=== PATIENT | female | born 1975 | race Caucasian/White ===

== ENCOUNTER 2019-07-27 09:11 | Emergency (ER) | payer MEDICAID ==
[~2019-07-27] VITALS: Ht 157.5 cm; Wt 65.8 kg
[2019-07-27 09:12] VITALS: BP 153/95
[2019-07-27] MEDS ORDERED: KETOROLAC 30 MG/ML VIAL IM ONE (09:50)
[2019-07-27 10:55] VITALS: BP 129/64
== END 2019-07-27 10:55 | disposition home or self-care (01) ==
LOC: MED 09:11
DX: S83.91XA Sprain of unspecified site of right knee, initial encounter (principal); Z98.890 Other specified postprocedural states
CPT/HCPCS: 29505; 73562; 93971; 96372; 99284; J1885; Q0092

== ENCOUNTER 2019-10-14 00:12 | Emergency (ER) | payer MEDICAID ==
[~2019-10-14] VITALS: Ht 157.5 cm; Wt 104.3 kg
[2019-10-14 00:14] VITALS: BP 151/79
--- NOTE | 2019-10-14 00:30 | NUR ---
PT PRESENTS TO THE WITH C/O LEFT KNEE PAIN. PT REPORTS FALLING WHILE WALKING ON THE STREET. DENIES LOSS OF CONSCIOUSNESS. PT DENIES OTHER MEDICAL HX. BED LOWERED WITH SIDE RAILS UP. XRAY PENDING
--- NOTE | 2019-10-14 00:41 | NUR ---
PATIENT BEING EVALUATED BY DR MOTA
[2019-10-14] MEDS ORDERED: KETOROLAC 60 MG/2 ML VIAL IM ONE (00:45)
--- NOTE | 2019-10-14 01:38 | NUR ---
KIRAN WRAP APPLIED TO PT L KNEE. +CSM
--- NOTE | 2019-10-14 01:39 | NUR ---
PT GIVEN INSTRUCTION ON PROPER USE OF CRUTCHES. CRUTCHES FITTED TO PT HEIGHT AND ARM LENGTH. PT GIVEN INSTRUCTION ON SITTING TO STANDING AND VICE VERSA, ASCENDING/DESCENDING STAIRS, AND WALKING. PT DEMONSTRATED SAFE USE FOR APPROXIMATELY 40 FEET, PT STATED SHE FELT COMFORTABLE WITH USE.
[2019-10-14 01:44] VITALS: BP 151/79
--- NOTE | 2019-10-14 01:44 | NUR ---
PT DISCHARGED BY DR MOTA
== END 2019-10-14 01:44 | disposition home or self-care (01) ==
LOC: MED 00:12
DX: S83.92XA Sprain of unspecified site of left knee, initial encounter (principal); Z98.890 Other specified postprocedural states; X50.1XXA Overexertion from prolonged static or awkward postures, initial encounter; Y93.89 Activity, other specified; Y92.89 Other specified places as the place of occurrence of the external cause; Y99.8 Other external cause status
CPT/HCPCS: 73562; 96372; 99283; J1885; Q0092

== ENCOUNTER 2019-12-02 09:58 | Emergency (ER) | payer MEDICAID ==
[~2019-12-02] VITALS: Ht 160 cm; Wt 77.1 kg
[2019-12-02 10:37] VITALS: BP 143/84
[2019-12-02] MEDS ORDERED: IBUPROFEN 800 MG TAB PO ONE (10:40)
--- NOTE | 2019-12-02 11:53 | NUR ---
PT AMBULATED TO ER BED 04
[2019-12-02] MEDS ORDERED: IBUPROFEN 800 MG TAB ONE (12:03)
--- NOTE | 2019-12-02 12:05 | NUR ---
44 Y/O F C/O PAIN IN JOINTS IN HANDS AND KNEES X2 DAYS. PT DENIED N/V/F. PT STATES PAIN WITH MOVEMENT 07/30. PT CAP REFIL LESS THAN 3 BILATERAL. PT POSITIONED FOR COMFRT, GIVEN MOTRIN PRESCRIBED. BED LOWERED, SIDE RAIL X1 IN PLACE. PT AMBULATED TO RESTROOM WITHOUT DIFFICULTY TO GIVE UA. NKA
[2019-12-02] MEDS ORDERED: ACETAMINOPHEN 325 MG TAB PO ONE (13:05)
[2019-12-02 14:41] VITALS: BP 143/84
== END 2019-12-02 14:42 | disposition home or self-care (01) ==
LOC: MED 09:58
DX: I83.92 Asymptomatic varicose veins of left lower extremity (principal)
CPT/HCPCS: 93971; 99284; Q0092

== ENCOUNTER 2020-10-17 11:23 | Emergency (ER) | payer MEDICAID ==
[~2020-10-17] VITALS: Ht 165.1 cm; Wt 86.2 kg
[2020-10-17 11:35] VITALS: BP 171/80
--- NOTE | 2020-10-17 11:36 | NUR ---
PT COMPLAINS OF RASH X 2 WEEKS. PT STATES IT HAS LITTLE ITCH, BUT PAINFUL. BRUISING AT SITE. PT AOX4, BREATHING EVEN AND UNLABORED, SKIN WARM AND DRY. BED IN LOWEST POSITION, LOCKED, BED RAIL UPX1. PMH - ARTHRITIS ALLERGIES - ASPIRIN
--- NOTE | 2020-10-17 11:50 | NUR ---
DR. GALLEGOS AT BEDSIDE EVALUATING PT
[2020-10-17 12:16] LABS: BASOPHILS % (AUTO) 0.7 % (0.0-2.0); EOSINOPHILS # (AUTO) 0.1 K/uL (0-0.4); EOSINOPHILS % (AUTO) 1.3 % (0.0-4.0); HEMATOCRIT 39.7 % (36-48); HEMOGLOBIN 13.1 g/dL (12.0-16.0); LYMPHOCYTES # (AUTO) 1.8 K/uL (2.5-16.5); LYMPHOCYTES % (AUTO) 26.8 % (20.5-51.1); MEAN CORPUSCULAR HEMOGLOBIN 29 pg (27-31); MEAN CORPUSCULAR HGB CONC 33 g/dL (33-37); MEAN CORPUSCULAR VOLUME 88.4 fL (80-94); MONOCYTES # (AUTO) 0.5 K/uL (0.8-1.0); MONOCYTES % (AUTO) 7.2 % (1.7-9.3); NEUTROPHILS # (AUTO) 4.3 K/uL (1.8-7.7); PLATELET COUNT (AUTO) 224 K/uL (140-450); RED BLOOD CELL COUNT(AUTO) 4.49 MIL/uL (4.20-5.40); RED CELL DISTRIBUTION WIDTH 13.8 % (11.6-13.7); WHITE BLOOD COUNT (AUTO) 6.8 K/uL (4.8-10.8)
[2020-10-17 12:26] LABS: ANION GAP 7.9 (8-16); CREATININE 0.6 mg/dL (0.6-1.3); POTASSIUM 3.9 mmol/L (3.5-5.1)
[2020-10-17 12:30] LABS: PROTHROMBIN TIME 9.6 secs (10.8-13.4)
[2020-10-17 12:32] LABS: ALBUMIN 3.5 g/dL (3.4-5.0); TOTAL BILIRUBIN 0.5 mg/dL (0.0-1.0)
[2020-10-17 13:10] VITALS: BP 165/80
--- NOTE | 2020-10-17 13:10 | NUR ---
Patient discharged with v/s stable. Written and verbal after care instructions about contusion in albanian given and explained. Patient alert, oriented and verbalized understanding of instructions. Ambulatory with steady gait. All questions addressed prior to discharge. ID band removed. Patient advised to follow up with PMD. Rx of percogesic given. Patient educated on indication of medication including possible reaction and side effects. Opportunity to ask questions provided and answered.
== END 2020-10-17 13:10 | disposition home or self-care (01) ==
LOC: MED 11:23
DX: R10.9 Unspecified abdominal pain (principal); Z88.6 Allergy status to analgesic agent; Z98.890 Other specified postprocedural states
CPT/HCPCS: 36415; 80053; 83690; 84703; 85025; 85610; 85730; 99283

== ENCOUNTER 2021-05-25 14:33 | Emergency (ER) | payer MEDICAID ==
[~2021-05-25] VITALS: Ht 157.5 cm; Wt 102.1 kg
[2021-05-25 14:49] VITALS: BP 166/84
--- NOTE | 2021-05-25 14:52 | NUR ---
PT ASKED TO WAIT IN LOBBY.
--- NOTE | 2021-05-25 15:28 | NUR ---
PT AMBULATED TO BED 08
--- NOTE | 2021-05-25 15:50 | NUR ---
45/F presents to ED with c/o right shoulder pain x2 months. Patient states she has had intermittent 7/10 right shoulder pain for 2 months worsening this week. Patient denies injury or trauma to site, states range of motion is limited due to pain. Pain is non radiating, tender to touch. Patient states she has also began having bilateral pain in her toes, denies injury or trauma states pain is worsening, denies taking anything at home for pain.
[2021-05-25] MEDS ORDERED: KETOROLAC 30 MG/ML VIAL IM ONE (16:55)
[2021-05-25] MEDS ORDERED: [UNRECOGNIZED DRUG - CODE] TP (17:43)
[2021-05-25 17:50] VITALS: BP 153/79
--- NOTE | 2021-05-25 17:51 | NUR ---
Patient discharged with v/s stable. Written and verbal after care instructions given and explained. Patient alert, oriented and verbalized understanding of instructions. Ambulatory with steady gait. All questions addressed prior to discharge. ID band removed. Patient advised to follow up with PMD. Rx of Lidopatch given. Patient educated on indication of medication including possible reaction and side effects. Opportunity to ask questions provided and answered.
== END 2021-05-25 17:51 | disposition home or self-care (01) ==
LOC: MED 14:33
DX: M25.511 Pain in right shoulder (principal); Z79.899 Other long term (current) drug therapy; Z88.6 Allergy status to analgesic agent
CPT/HCPCS: 73030; 96372; 99283; J1885

== ENCOUNTER 2023-04-28 15:12 | Inpatient (IN) | payer MEDICAID ==
[~2023-04-28] VITALS: Ht 165.1 cm; Wt 94.3 kg
[~2023-04-28 15:12] MED LIST: BEN10 PO; IBUP-2213 PO; POLY17PD72 PO; [UNRECOGNIZED DRUG - CODE] TP
[2023-04-28 15:20] VITALS: BP 159/89; PULSE 87; RESP 17; TEMP 97.7; O2SAT 98
[2023-04-28] MEDS ORDERED: ONDANSETRON 4 MG/2 ML VIAL IVP ONE (15:55)
[2023-04-28] MEDS ORDERED: MORPHINE SULFATE 4 MG/ML SYR IVP ONE ×2 (15:55→22:35)
[2023-04-28 16:40] LABS: BASOPHILS # (AUTO) 0.1 K/uL (0.00-0.22); BASOPHILS % (AUTO) 0.7 % (0.0-2.0); EOSINOPHILS # (AUTO) 0.1 K/uL (0-0.4); EOSINOPHILS % (AUTO) 1.3 % (0.0-4.0); HEMATOCRIT 39.4 % (36-48); HEMOGLOBIN 13.3 g/dL (12.0-16.0); LYMPHOCYTES # (AUTO) 2.4 K/uL (2.5-16.5); LYMPHOCYTES % (AUTO) 24.8 % (20.5-51.1); MEAN CORPUSCULAR HEMOGLOBIN 29 pg (27-31); MEAN CORPUSCULAR HGB CONC 34 g/dL (33-37); MEAN CORPUSCULAR VOLUME 84.3 fL (80-94); MONOCYTES # (AUTO) 0.8 K/uL (0.8-1.0); MONOCYTES % (AUTO) 7.8 % (1.7-9.3); NEUTROPHILS # (AUTO) 6.4 K/uL (1.8-7.7); NEUTROPHILS % (AUTO) 65.4 % (42.2-75.2); PLATELET COUNT (AUTO) 251 K/uL (140-450); RED BLOOD CELL COUNT(AUTO) 4.67 MIL/uL (4.20-5.40); RED CELL DISTRIBUTION WIDTH 14.1 % (11.6-13.7); WHITE BLOOD COUNT (AUTO) 9.8 K/uL (4.8-10.8)
[2023-04-28 16:50] LABS: APPEARANCE,URINE CLEAR (CLEAR); BILIRUBIN,URINE NEGATIVE (NEGATIVE); BLOOD, URINE 3+ (NEGATIVE); COLOR,URINE YELLOW (YELLOW); LEUKOCYTE ESTERASE ,URINE NEGATIVE (NEGATIVE); NITRITE, URINE NEGATIVE (NEGATIVE); PROTEIN,URINE NEGATIVE (NEGATIVE); UGLUCOSE TRACE (NEGATIVE); UROBILINOGEN,URINE 0.2 EU/dL (0.2 - 1)
[2023-04-28 16:56] LABS: ALBUMIN 3.3 g/dL (3.4-5.0); ANION GAP 11.5 (8-16); CARBON DIOXIDE 27.3 mmol/L (21-32); CREATININE 0.6 mg/dL (0.6-1.3); POTASSIUM 3.8 mmol/L (3.5-5.1); TOTAL BILIRUBIN 0.2 mg/dL (0.0-1.0); TOTAL PROTEIN, SERUM 7.8 g/dL (6.4-8.2)
[2023-04-28 16:58] LABS: BACTERIA,URINE None Seen /HPF (None Seen); RBC,URINE 20-50 /HPF (0-5); SQUAMOUS EPITHELIAL CELL,UR 0-3 (FEW) /LPF (0-3 (FEW)); WBC,URINE 0-5 /HPF (0-5)
[2023-04-28] MEDS ORDERED: ONDANSETRON 4 MG/2 ML VIAL ONE (17:01)
[2023-04-28] MEDS ORDERED: MORPHINE SULFATE 4 MG/ML SYR ONE (17:01)
[2023-04-28] MEDS ORDERED: POTASSIUM CHLORIDE 10 MEQ TABER PO PRN (22:00)
[2023-04-28] MEDS ORDERED: DOCUSATE SODIUM 100 MG GELCAP PO PRN (22:00)
[2023-04-28] MEDS ORDERED: guaiFENesin DM 200/20 MG-10 ML 10 ML UDC PO PRN (22:00)
[2023-04-28] MEDS: NACL 0.9% 1,000 ML IV SCH (22:00)
[2023-04-28] MEDS ORDERED: ZOLPIDEM 5 MG TAB PO PRN (22:00)
[2023-04-28 22:21] LABS: AMYLASE 60 U/L (25-115); LIPASE 61 U/L (73-393)
[2023-04-28 22:24] LABS: INR 0.94 (0.8-1.2); PARTIAL THROMBOPLASTIN TIME 28.3 secs (22-35.6); PROTHROMBIN TIME 9.9 secs (10.8-13.4)
[2023-04-28] MEDS: ONDANSETRON 4 MG/2 ML VIAL IM/IVP PRN (22:55)
[2023-04-28 23:01] LABS: AMPHETAMINE, URINE NEGATIVE ng/ml (NEG <=1000); BARBITURATE, URINE NEGATIVE ng/ml (NEG <=200); BENZODIAZEPINE, URINE NEGATIVE ng/mL (NEG <=200); CANNABINOID, URINE NEGATIVE ng/mL (NEG <=50); COCAINE, URINE NEGATIVE ng/mL (NEG <=300); OPIATE, URINE NEGATIVE ng/mL (NEG <=2000); PHENCYCLIDINE SCREEN,URINE NEGATIVE ng/mL (NEG <=25)
[2023-04-29 05:21] LABS: HEMATOCRIT 38.6 % (36-48); HEMOGLOBIN 12.9 g/dL (12.0-16.0); MEAN CORPUSCULAR HEMOGLOBIN 28 pg (27-31); MEAN CORPUSCULAR HGB CONC 33 g/dL (33-37); PLATELET COUNT (AUTO) 231 K/uL (140-450); RED BLOOD CELL COUNT(AUTO) 4.54 MIL/uL (4.20-5.40); RED CELL DISTRIBUTION WIDTH 14.2 % (11.6-13.7); WHITE BLOOD COUNT (AUTO) 8.2 K/uL (4.8-10.8)
[2023-04-29 05:35] LABS: ANION GAP 11.8 (8-16); CARBON DIOXIDE 26.1 mmol/L (21-32); CREATININE 0.6 mg/dL (0.6-1.3); POTASSIUM 3.9 mmol/L (3.5-5.1)
[2023-04-29 05:38] LABS: PHOSPHORUS 2.8 mg/dL (2.5-4.9)
[2023-04-29 07:02] LABS: BASOPHILS % (MANUAL) 0 % (0-2); EOSINOPHILS % (MANUAL) 1 % (0-4); LYMPHOCYTES % (MANUAL) 23 % (20-46); MONOCYTES % (MANUAL) 4 % (5-12); SMUDGE CELLS FEW
[2023-04-29] MEDS: PANTOPRAZOLE 40 MG TABEC PO SCH (09:00)
[2023-04-29 10:04] VITALS: BP 153/88; TEMP 98.6; O2SAT 95
[2023-04-29] MEDS: NACL 0.9% 1,000 ML IV SCH (10:57)
[2023-04-29] MEDS: ACETAMINOPHEN 325 MG TAB PO PRN (11:14)
[2023-04-29 12:00] VITALS: PULSE 78; PULSE 81
[2023-04-29 16:00] VITALS: PULSE 83
[2023-04-29 17:25] VITALS: BP 127/67; PULSE 85; RESP 18; TEMP 97.5
[2023-04-29 20:00] VITALS: BP 137/73; PULSE 82; PULSE 94; RESP 18; TEMP 97.6; O2SAT 95
[2023-04-29] MEDS: HYDROcodone/APAP 7.5/325 MG 1 TAB PO PRN (22:30)
[2023-04-29] MEDS: ONDANSETRON 4 MG/2 ML VIAL IM/IVP PRN (22:59)
[2023-04-30] VITALS: BP 108/52; PULSE 72; PULSE 78; RESP 18; TEMP 97.8
[2023-04-30 04:00] VITALS: BP 120/70; PULSE 70; PULSE 90; RESP 18; TEMP 98.3
[2023-04-30 05:54] LABS: BASOPHILS # (AUTO) 0.1 K/uL (0.00-0.22); BASOPHILS % (AUTO) 0.7 % (0.0-2.0); EOSINOPHILS # (AUTO) 0.1 K/uL (0-0.4); EOSINOPHILS % (AUTO) 1.9 % (0.0-4.0); HEMATOCRIT 38.1 % (36-48); HEMOGLOBIN 12.7 g/dL (12.0-16.0); LYMPHOCYTES # (AUTO) 2.3 K/uL (2.5-16.5); LYMPHOCYTES % (AUTO) 34.1 % (20.5-51.1); MEAN CORPUSCULAR HEMOGLOBIN 29 pg (27-31); MEAN CORPUSCULAR HGB CONC 33 g/dL (33-37); MEAN CORPUSCULAR VOLUME 85.5 fL (80-94); MONOCYTES # (AUTO) 0.6 K/uL (0.8-1.0); MONOCYTES % (AUTO) 8.1 % (1.7-9.3); NEUTROPHILS # (AUTO) 3.8 K/uL (1.8-7.7); NEUTROPHILS % (AUTO) 55.2 % (42.2-75.2); PLATELET COUNT (AUTO) 238 K/uL (140-450); RED BLOOD CELL COUNT(AUTO) 4.46 MIL/uL (4.20-5.40); RED CELL DISTRIBUTION WIDTH 14.5 % (11.6-13.7); WHITE BLOOD COUNT (AUTO) 6.9 K/uL (4.8-10.8)
[2023-04-30] MEDS: ACETAMINOPHEN 325 MG TAB PO PRN (05:56)
[2023-04-30 06:18] LABS: ANION GAP 10.8 (8-16); CALCIUM 8.3 mg/dL (8.5-10.1); CARBON DIOXIDE 27.9 mmol/L (21-32); CREATININE 0.6 mg/dL (0.6-1.3); POTASSIUM 3.7 mmol/L (3.5-5.1)
[2023-04-30 06:38] LABS: MAGNESIUM 2.1 mg/dL (1.8-2.4); PHOSPHORUS 3.5 mg/dL (2.5-4.9)
[2023-04-30] MEDS: NACL 0.9% 1,000 ML IV SCH (07:20)
[2023-04-30 08:00] VITALS: BP 117/68; PULSE 69; PULSE 73; PULSE 78; RESP 18; TEMP 97; O2SAT 97; O2SAT 99
[2023-04-30] MEDS ORDERED: IBUP-2213 PO (09:35)
[2023-04-30] MEDS ORDERED: PANT40EC PO (09:36)
[2023-04-30] MEDS: HYDROcodone/APAP 7.5/325 MG 1 TAB PO PRN (10:47)
[2023-04-30] MEDS ORDERED: NOREPINEPHRINE 8 MG in DEXTROSE 5% 250 ML IV PRN (10:50)
[2023-04-30] MEDS: ONDANSETRON 4 MG/2 ML VIAL IM/IVP PRN (10:51)
[2023-04-30 12:00] VITALS: BP 124/64; PULSE 72; PULSE 73; RESP 18; TEMP 97.5; O2SAT 97
[2023-04-30] MEDS: PANTOPRAZOLE 40 MG TABEC PO SCH (12:10)
[2023-04-30 13:54] VITALS: BP 124/64; PULSE 73; RESP 18; TEMP 97.5
== END 2023-04-30 15:04 | disposition home or self-care (01) ==
LOC: MED 15:12 → MTU 22:05
PROVIDERS: ADMIT Student in an Organized Health Care Education/Training Program; ATTEND Student in an Organized Health Care Education/Training Program
DX: K80.70 Calculus of gallbladder and bile duct without cholecystitis without obstruction (principal); E44.1 Mild protein-calorie malnutrition; R65.10 Systemic inflammatory response syndrome (SIRS) of non-infectious origin without acute organ dysfunction; E66.9 Obesity, unspecified; Z20.822 Contact with and (suspected) exposure to COVID-19; Z88.6 Allergy status to analgesic agent; Z79.1 Long term (current) use of non-steroidal anti-inflammatories (NSAID); Z90.710 Acquired absence of both cervix and uterus; Z79.899 Other long term (current) drug therapy; Z68.34 Body mass index [BMI] 34.0-34.9, adult
CPT/HCPCS: 36415; 71045; 76705; 78445; 80048; 80053; 80305; 81001; 82150; 82948; 83605; 83690; 83735; 84100; 85025; 85610; 85730; 86886; 86900; 86901; 87081; 96374; 96375; 96376; 99285; A9510; J2270; J2405; Q0092; Q9967